=== PATIENT | female | born 1985 | race Caucasian/White ===

== ENCOUNTER 2020-05-09 16:44 | Emergency (ER) | payer OTHER ==
[~2020-05-09] VITALS: Ht 157.5 cm; Wt 59.9 kg
[2020-05-09] MEDS ORDERED: SYEDA 28 TABLE1 EACH (16:51)
== END 2020-05-10 07:15 | disposition home or self-care (01) ==
LOC: ER 16:44
DX: R10.13 Epigastric pain (principal); R10.32 Left lower quadrant pain; D25.9 Leiomyoma of uterus, unspecified; R19.7 Diarrhea, unspecified
CPT/HCPCS: 74177; Q9965